=== PATIENT | male | born 1970 | race Two or more races ===

== ENCOUNTER 2018-12-28 16:50 | Emergency (ER) | payer BC, OTHER ==
[2018-12-28 17:31] VITALS: RESP 18
[2018-12-28] MEDS ORDERED: HYDROmorphone 0.5 MG/0.5 ML SYRINGE IVP STA ×2 (18:13→20:01)
[2018-12-28] MEDS ORDERED: SODIUM CHLORIDE 0.9% 2,000 ML IV STA (18:13)
[2018-12-28 18:51] LABS: Basophils # (A) 0.1 k/uL (0-0.2); Basophils % (A) 1 %; Eosinophils # (A) 0.2 k/uL (0-0.7); Eosinophils % (A) 2 %; HGB 18.2 gm/dL (13.0-17.5); Lymphocytes # (A) 1.9 k/uL (1.0-4.8); Lymphocytes % (A) 17 %; MCH 30.8 pg (25.0-35.0); MCHC 34.2 g/dL (31.0-37.0); MCV 89.9 fL (80.0-100.0); Mean Platelet Volume 6.3; Monocytes # (A) 0.7 k/uL (0-1.0); Monocytes % (A) 6 %; Neutrophils % (A) 72 %; Platelet Count 303 k/uL (150-450); RDW 12.4 % (11.5-15.5); WBC 11.2 k/uL (3.8-10.6)
[2018-12-28 18:55] LABS: Appearance,Urine Clear (Clear); Bilirubin,Urine 1+ (Negative); Blood,Urine Negative (Negative); Color,Urine Yellow; Glucose,Urine (UA) Negative (Negative); Ketones,Urine 3+ (Negative); Leukocyte Esterase,Urine Negative (Negative); Mucus,Urine Many /hpf; Nitrite,Urine Negative (Negative); Protein,Urine 1+ (Negative); RBC,Urine 2 /hpf (0-5); Specific Gravity,Urine 1.034 (1.001-1.035); Squamous Epithelial Cell,Urine 1 /hpf (0-4); WBC,Urine 2 /hpf (0-5)
[2018-12-28 19:06] LABS: ALT 26 U/L (21-72); AST 32 U/L (17-59); African American GFR (CKD) >90 (>60 ml/min/1.73 sqM); Albumin 4.6 g/dL (3.5-5.0); Alkaline Phosphatase 95 U/L (38-126); Amylase 56 U/L (30-110); Anion Gap 17 mmol/L; Blood Urea Nitrogen 19 mg/dL (9-20); Calcium 9.5 mg/dL (8.4-10.2); Carbon Dioxide 19 mmol/L (22-30); Chloride 103 mmol/L (98-107); Glucose 91 mg/dL (74-99); Non-African American GFR(CKD) 89 (>60 ml/min/1.73 sqM); Potassium 4.3 mmol/L (3.5-5.1); Sodium 139 mmol/L (137-145); Total Bilirubin 0.7 mg/dL (0.2-1.3); Total Protein 8.4 g/dL (6.3-8.2)
--- NOTE | 2018-12-28 19:22 | XR ---
EXAMINATION TYPE: XR abdomen 2V DATE OF EXAM: 12/28/2018 COMPARISON: NONE HISTORY: Abdominal pain TECHNIQUE: 3 views supine and upright FINDINGS: There is no sign of intestinal obstruction or pneumoperitoneum. Fecal pattern is normal. Claudette ng bases are clear. There are no pathologic calcifications over the kidneys. IMPRESSION: Nonacute abdomen.
--- NOTE | 2018-12-28 19:53 | ED ---
General Adult HPI - General Chief complaint: Abdominal Pain Stated complaint: Not eating,constipation Time Seen by Provider: 12/28/18 17:47 Source: patient, family, RN notes reviewed Mode of arrival: ambulatory Limitations: no limitations - History of Present Illness Initial comments: Chief complaint history of present illness is a 48-year-old man here with his significant other. The patient reports he had 5 days of constipation. Yesterday he uses suppository and this morning he used 10 ounces of mag citrate. Today he's had loose stool. Patient's decreased appetite abdominal cramping. This is not his typical bowel habit. Patient states he's had sweats and fever at home for several days. His son had diarrhea last week. Does not think he h ad an 20 bad food. - Related Data Home Medications Medication Instructions Recorded Confirmed Atorvastatin Calcium [Lipitor] 10 mg PO DAILY 12/28/18 12/28/18 Allergies Allergy/AdvReac Type Severity Reaction Status Date / Time No Known Allergies Allergy Verified 12/28/18 18:03 Review of Systems ROS Statement: Those systems with pertinent positive or pertinent negative responses have been documented in the HPI. Review of systems. Patient denies headache no visual acuity changes no fever at this time. No chest pain or shortness of breath. He has abdominal discomfort but not serious pain. He's had loose stool watery at times denies it being black or bloody. He did use 10 ounces of mag citrate this morning. No fever today. No neuro deficits. No other problems. All systems reviewed. Past medical problems significant for GERD, occasional marijuana use, had a hernia repaired. Family history noncontributory. ROS Other: All systems not noted in ROS Statement are negative. Past Medical History Past Medical History: GERD/Reflux History of Any Multi-Drug Resistant Organisms: None Reported Past Surgical History: Hernia Repair Past Psychological History: No Psychological Hx Reported Smoking Status: Current every day smoker Past Alcohol Use History: Occasional Past Drug Use History: Marijuana General Exam - General Exam Comments Initial Comments: General: The patient is awake and alert, patient because of abdominal cramping and discomfort with diarrhea since taking 10 ounces of mag citrate this morning. This precipitated by 5 days of what he described as constipation. Though he did have some watery stool during those 5 days. Best was knowledge he did not have any bad food. His vital signs show temperature 98.4 pulse 107 respiratory rate 18 pulse ox 97% room air blood pressure 141/90 Eye: Pupils are equal, round and reactive to light, extra-ocular movements are intact; there is normal conjunctiva bilaterally. No signs of icterus. Ears, nose, mouth and throat: There are moist mucous membranes and no oral lesions. Neck: The neck is supple, there is no tenderness Cardiovascular: There is a regular rate and rhythm. No murmur, rub or gallop is appreciated. Respiratory: Lungs are clear to auscultation, respirations are non-labored, breath sounds are equal. No wheezes, stridor, rales, or rhonchi. Gastrointestinal: Soft, non-distended, non-tender abdomen without masses or organomegaly noted. There is no rebound or guarding present. . Bowel sounds are unremarkable. Back: Nontender Musculoskeletal: Normal ROM, no tenderness, There is no pedal edema. There is no calf tenderness or swelling. Neurological: No complaint of any weakness, and no neuro deficits. Good balance.. Skin: Skin is warm and dry and no rashes or lesions are noted. Psychiatric: Cooperative, Limitations: no limitations Course Vital Signs 12/28/18 12/28/18 17:28 20:10 Temperature 98.4 F 98.9 F Pulse Rate 107 H 100 Respiratory 18 18 Rate Blood Pressure 141/90 137/90 O2 Sat by Pulse 97 97 Oximetry Medical Decision Making - Medical Decision Making Medical decision making; is a 48-year-old male here with his . The patient reports Constipation type cramps for 5 days and then yesterday took a suppository and then today mag citrate. Today's had loose watery stool. He does report he did have some watery stool over the last several days as well. He also states he had some nausea no vomiting and sweats and fever for 3 days but not for the past 24 hours. Patient's white count 11 hemoglobin 18 hematocrit 83 with a potassium 4.3. BUN 19 creatinine 1.01 with a GFR 89. Glucose 91. Plasma lactic acid 1.3. Blood cultures were pending. Urine shows 3+ ketones. No signs of infection. C. diff negative. X-ray of the abdomen was done and reviewed by radiologist his findings are there is no sign of intestinal obstruction or pneumoperitoneum. Fecal pattern is normal. Lung bases are clear. There are no pathologic calcifications over the kidneys. Impression nonacute abdomen. As read by Dr. Delgado 1 emergency room patient was hydrated. The plan is to place the patient on Cipro 500 twice a day for 5 days We discussed causes for nonspecific enteritis or diarrhea. The patient's abdomen remains soft to touch no guarding no rebound. Plan the patient will follow up then rice applesauce toast diet to reestablish normal stool. Advised to use Imodium [id number] if after several days he still having difficult y. The patient will be given Cipro 500 twice a day for 3 days. Advised to follow-up with family physician return emergency room as needed. The patient states he is feeling better after 2 L of fluid. - Lab Data Result diagrams: 12/28/18 18:35 12/28/18 18:35 Lab Results 12/28/18 12/28/18 12/28/18 Range/Units 18:35 18:35 18:35 WBC 11.2 H (3.8-10.6) k/uL RBC 5.90 (4.30-5.90) m/uL Hgb 18.2 H (13.0-17.5) gm/dL Hct 53.0 (39.0-53.0) % MCV 89.9 (80.0-100.0) fL MCH 30.8 (25.0-35.0) pg MCHC 34.2 (31.0-37.0) g/dL RDW 12.4 (11.5-15.5) % Plt Count 303 (150-450) k/uL Neutrophils % 72 % Lymphocytes % 17 % Monocytes % 6 % Eosinophils % 2 % Basophils % 1 % Neutrophils # 8.0 H (1.3-7.7) k/uL Lymphocytes # 1.9 (1.0-4.8) k/uL Monocytes # 0.7 (0-1.0) k/uL Eosinophils # 0.2 (0-0.7) k/uL Basophils # 0.1 (0-0.2) k/uL Sodium 139 (137-145) mmol/L Potassium 4.3 (3.5-5.1) mmol/L Chloride 103 (98-107) mmol/L Carbon Dioxide 19 L (22-30) mmol/L Anion Gap 17 mmol/L BUN 19 (9-20) mg/dL Creatinine 1.01 (0.66-1.25) mg/dL Est GFR (CKD-EPI)AfAm >90 (>60 ml/min/1.73 sqM) Est GFR (CKD-EPI)NonAf 89 (>60 ml/min/1.73 sqM) Glucose 91 (74-99) mg/dL Plasma Lactic Acid Brian (0.7-2.0) mmol/L Calcium 9.5 (8.4-10.2) mg/dL Total Bilirubin 0.7 (0.2-1.3) mg/dL AST 32 (17-59) U/L ALT 26 (21-72) U/L Alkaline Phosphatase 95 (38-126) U/L Total Protein 8.4 H (6.3-8.2) g/dL Albumin 4.6 (3.5-5.0) g/dL Amylase 56 (30-110) U/L Lipase 82 (23-300) U/L Urine Color Urine Appearance (Clear) Urine pH (5.0-8.0) Ur Specific Cedar (1.001-1.035) Urine Protein (Negative) Urine Glucose (UA) (Negative) Urine Ketones (Negative) Urine Blood (Negative) Urine Nitrite (Negative) Urine Bilirubin (Negative) Urine Urobilinogen (<2.0) mg/dL Ur Leukocyte Esterase (Negative) Urine RBC (0-5) /hpf Urine WBC (0-5) /hpf Ur Squamous Epith Cells (0-4) /hpf Urine Mucus (None) /hpf C. difficile (EIA) Intrp Negative (Negative) 12/28/18 12/28/18 Range/Units 18:35 18:35 WBC (3.8-10.6) k/uL RBC (4.30-5.90) m/uL Hgb (13.0-17.5) gm/dL Hct (39.0-53.0) % MCV (80.0-100.0) fL MCH (25.0-35.0) pg MCHC (31.0-37.0) g/dL RDW (11.5-15.5) % Plt Count (150-450) k/uL Neutrophils % % Lymphocytes % % Monocytes % % Eosinophils % % Basophils % % Neutrophils # (1.3-7.7) k/uL Lymphocytes # (1.0-4.8) k/uL Monocytes # (0-1.0) k/uL Eosinophils # (0-0.7) k/uL Basophils # (0-0.2) k/uL Sodium (137-145) mmol/L Potassium (3.5-5.1) mmol/L Chloride (98-107) mmol/L Carbon Dioxide (22-30) mmol/L Anion Gap mmol/L BUN (9-20) mg/dL Creatinine (0.66-1.25) mg/dL Est GFR (CKD-EPI)AfAm (>60 ml/min/1.73 sqM) Est GFR (CKD-EPI)NonAf (>60 ml/min/1.73 sqM) Glucose (74-99) mg/dL Plasma Lactic Acid Brian 1.3 (0.7-2.0) mmol/L Calcium (8.4-10.2) mg/dL Total Bilirubin (0.2-1.3) mg/dL AST (17-59) U/L ALT (21-72) U/L Alkaline Phosphatase (38-126) U/L Total Protein (6.3-8.2) g/dL Albumin (3.5-5.0) g/dL Amylase (30-110) U/L Lipase (23-300) U/L Urine Color Yellow Urine Appearance Clear (Clear) Urine pH 6.0 (5.0-8.0) Ur Specific Cedar 1.034 (1.001-1.035) Urine Protein 1+ H (Negative) Urine Glucose (UA) Negative (Negative) Urine Ketones 3+ H (Negative) Urine Blood Negative (Negative) Urine Nitrite Negative (Negative) Urine Bilirubin 1+ H (Negative) Urine Urobilinogen 3.0 (<2.0) mg/dL Ur Leukocyte Esterase Negative (Negative) Urine RBC 2 (0-5) /hpf Urine WBC 2 (0-5) /hpf Ur Squamous Epith Cells 1 (0-4) /hpf Urine Mucus Many H (None) /hpf C. difficile (EIA) Intrp (Negative) Disposition Clinical Impression: Enteritis Disposition: HOME SELF-CARE Condition: Fair Instructions (If sedation given, give patient instructions): Bismuth Subsal icylate (By mouth), Constipation (ED), Traveler's Diarrhea (ED) Is patient prescribed a controlled substance at d/c from ED?: No Referrals: Yemi Mayo DO [Primary Care Provider] - 1-2 days Time of Disposition: 20:19
[2018-12-28 20:11] VITALS: BP 137/90; PULSE 100; TEMP 98.9
[2018-12-28] MEDS ORDERED: CIPROFLOXACIN HCL 500 MG TAB PO STA (20:19)
== END 2018-12-28 20:40 | disposition home or self-care (01) ==
LOC: EC 16:50
DX: K52.9 Noninfective gastroenteritis and colitis, unspecified (principal); R82.4 Acetonuria; F17.200 Nicotine dependence, unspecified, uncomplicated; Z87.19 Personal history of other diseases of the digestive system; Z53.8 Procedure and treatment not carried out for other reasons
CPT/HCPCS: 36415; 80053; 82150; 83605; 83690; 85025; 81001; 87324; 87086; 74019; 99284; 96374; 96361 ×2; J1170

== ENCOUNTER 2022-05-08 10:08 | Emergency (ER) | payer BC, MEDICAID ==
[2022-05-08 10:37] VITALS: PULSE 78; TEMP 97.5
--- NOTE | 2022-05-08 10:59 | ED ---
Lower Extremity Injury HPI - General Chief Complaint: Extremity Injury, Lower Stated Complaint: rt knee infection - sent from urgent care Time Seen by Provider: 05/08/22 10:41 Source: patient, RN notes reviewed, old records reviewed Mode of arrival: ambulatory Limitations: no limitations - History of Present Illness Initial Comments: This is a 51-year-old male, alert and oriented x4 that presents to the emergency room with complaints of right knee pain. Patient states that he was at urgent care and was told to come to the emergency room for evaluation today. He states that he fell off of his truck onto his right knee 2 weeks ago. It has been sore since however yesterday he was working in a crawl space crawling around on his knees for 4 hours and today he woke up with increased pain and swelling. No previous injuries to this knee. No other medical history. Denies any fevers. MD Complaint: knee injury (right) -: week(s) (2) Injury: Knee: Right Type of Injury: blunt (fall onto knee) Place: street/outdoors Severity scale (1-10): 6 Improves With: immobilization Worsens With: palpation Context: fall - Related Data Home Medications Medication Instructions Recorded Confirmed Atorvastatin Calcium [Lipitor] 10 mg PO DAILY 12/28/18 12/28/18 Previous Rx's Medication Instructions Recorded Ciprofloxacin HCl [Cipro] 500 mg PO BID 3 Days #6 tab 12/28/18 Ibuprofen [Motrin] 600 mg PO Q8HR PRN #30 tab 05/08/22 Allergies Allergy/AdvReac Type Severity Reaction Status Date / Time No Known Allergies Allergy Verified 05/08/22 10:37 Review of Systems ROS Statement: Those systems with pertinent positive or pertinent negative responses have been documented in the HPI. ROS Other: All systems not noted in ROS Statement are negative. Past Medical History Past Medical History: GERD/Reflux History of Any Multi-Drug Resistant Organisms: None Reported Past Surgical History: Hernia Repair Past Psychological History: No Psychological Hx Reported Smoking Status: Never smoker Past Alcohol Use History: Occasional Past Drug Use History: Marijuana General Exam Limitations: no limitations General appearance: alert, in no apparent distress Eye exam: Absent: scleral icterus, conjunctival injection, periorbital swelling Respiratory exam: Absent: respiratory distress, accessory muscle use Cardiovascular Exam: Present: regular rate Right Knee exam: Present: full ROM, tenderness, swelling, abrasion (Superficial), effusion, full knee extension. Absent: laceration, ecchymosis, deformity, crepitus, dislocation, erythema, pain/laxity with valgus, pain/laxity with varus Lower Leg exam: Present: normal inspection, full ROM. Absent: tenderness, swelling, abrasion, laceration, ecchymosis, deformity, crepitus, dislocation, erythema, Homans' sign Ankle exam: Absent: tenderness, swelling Neurovascular tendon exam: Present: no vascular compromise. Absent: extremity cold to touch, pallor, foot drop, significant pain with passive ROM of distal joint Left Knee exam: Present: full ROM, full knee extension. Absent: tenderness, swelling, effusion, pain/laxity with valgus, pain/laxity with varus Lower Leg exam: Absent: tenderness Ankle exam: Absent: tenderness Neurovascular tendon exam: Present: no vascular compromise. Absent: extremity cold to touch Neurological exam: Present: alert, oriented X3, normal gait Psychiatric exam: Present: normal affect, normal mood Skin exam: Present: warm, dry, normal color. Absent: cyanosis, diaphoretic, petechiae, pallor Course Vital Signs 05/08/22 05/08/22 10:34 12:00 Temperature 97.5 F L Pulse Rate 78 78 Respiratory 20 17 Rate Blood Pressure 121/76 131/75 O2 Sat by Pulse 98 99 Oximetry Medical Decision Making - Medical Decision Making Patient presents with right knee pain today, sent by urgent care for evaluation. Denies any fevers. No nausea vomiting or diarrhea. Full range of motion. Is able to ambulate. Minimal swelling noted, no erythema, no calf pain. Right knee x-ray interpreted by me shows no evidence of fracture or dislocation. No foreign body. Radiologist interpretation no acute fracture or dislocation. Patellar soft tissue swelling noted. This is consistent with physical exam, likely a bursitis as he states that he had been crawling on his knees for 4 hours yesterday. He was given Toradol injection. Directed to rest ice and elevate at home with Robin wrap for compression. Strict return parameters were discussed to return if any fevers, inability to ambulate or increased pain and swelling. Case discussed with Dr. Osorio Disposition Clinical Impression: Bursitis, Knee pain, right Disposition: HOME SELF-CARE Condition: Good Instructions (If sedation given, give patient instructions): Knee Bursitis (ED), Knee Pain (ED) Additional Instructions: Rest, ice and elevate. Wear Robin wrap for compression. Tylenol and or Motrin as needed for any pain or discomfort. Follow-up with your primary care doctor within the next week. Return to the emergency room with any new or concerning symptoms including fevers or inability to bear weight. Prescriptions: Ibuprofen [Motrin] 600 mg PO Q8HR PRN #30 tab PRN Reason: Pain Is patient prescribed a controlled substance at d/c from ED?: No Referrals: Yemi Mayo DO [Primary Care Provider] - 1-2 days Time of Disposition: 11:43
--- NOTE | 2022-05-08 11:18 | XR ---
EXAMINATION TYPE: XR knee complete RT DATE OF EXAM: 05/08/2022 CLINICAL HISTORY: pain TECHNIQUE: Three views of the right knee are obtained. COMPARISON: None. FINDINGS: There is no acute fracture/dislocation. The tri-compartment joint spaces appear within no rmal limits. Prepatellar soft tissue swelling noted. IMPRESSION: There is no acute fracture or dislocation.ICD 10 NO FRACTURE, INITIAL EVALUATION
[2022-05-08] MEDS ORDERED: KETOROLAC 15 MG/ML 1 ML VIAL IM STA (11:46)
[2022-05-08 12:01] VITALS: BP 131/75; RESP 17
== END 2022-05-08 12:01 | disposition home or self-care (01) ==
LOC: EC 10:08
DX: M71.9 Bursopathy, unspecified (principal); M25.561 Pain in right knee; K21.9 Gastro-esophageal reflux disease without esophagitis; F12.90 Cannabis use, unspecified, uncomplicated
CPT/HCPCS: 73562; 99283; 96372; J1885